=== PATIENT | male | born 1990 | race Caucasian/White ===

== ENCOUNTER → 2021-02-11 | Outpatient (CLI) | payer OTHER ==
[~2021-02-11] MED LIST: ACET325T26 PO; COLC0.6C3 PO; IBUP-1902 PO; OMNIPAQUE 350 MG/ML, 100ML BOTTLE ONE
== END | disposition home or self-care (01) ==
LOC: CFH 13:17
PROVIDERS: ATTEND Family Medicine
DX: R06.02 Shortness of breath (principal)
CPT/HCPCS: 71275; Q9967

== ENCOUNTER → 2021-02-12 | Outpatient (CLI) | payer OTHER ==
[~2021-02-12] MED LIST changes: -OMNIPAQUE 350 MG/ML, 100ML BOTTLE ONE
== END | disposition home or self-care (01) ==
LOC: CVU 09:54
PROVIDERS: ATTEND Internal Medicine Clinical Cardiac Electrophysiology
DX: I37.1 Nonrheumatic pulmonary valve insufficiency (principal); I40.0 Infective myocarditis
CPT/HCPCS: 93308; 93321; 93325

== ENCOUNTER → 2021-03-18 | Outpatient (CLI) | payer OTHER | END | disposition home or self-care (01) | LOC: CFH 13:51 | PROVIDERS: ATTEND Internal Medicine Clinical Cardiac Electrophysiology | DX: I51.7 Cardiomegaly (principal); I40.0 Infective myocarditis; Z86.16 Personal history of COVID-19 | CPT/HCPCS: 93306; 93356 ==

== ENCOUNTER 2021-03-28 22:42 | Emergency (ER) | payer OTHER ==
[~2021-03-28] VITALS: Ht 182.9 cm; Wt 101.0 kg
[2021-03-28 23:12] LABS: BASOPHILS % (AUTO) 1 % (0-1); EOSINOPHILS % (AUTO) 2 % (1-7); LYMPHOCYTES % (AUTO) 46 % (22-44); MEAN CORPUSCULAR HEMOGLOBIN 30.9 pg (27.5-34.5); MEAN CORPUSCULAR HGB CONC 35.1 g/dL (33.2-36.2); MONOCYTES % (AUTO) 8 % (2-9); NEUTROPHILS % (AUTO) 43 % (42-75); PLATELET COUNT 251 x10^3/uL (130-400); RED BLOOD COUNT 5.38 x10^6/uL (4.38-5.82); RED CELL DISTRIBUTION WIDTH 12.3 % (9.4-14.8)
--- NOTE | 2021-03-28 23:12 | NUR ---
PT CAME INTO ED THIS EVENING AFTER HAVING ISSUES WITH HEART PALPITATIONS. PT HAD COVID AWHILE BACK AND SINCE THAT POINT FEELS THOUGH OCCASSIONALLY HE WILL GET A FAST HEART RATE THAT WILL FEEL LIKE ITS FLUTTERING IN HIS CHEST AND LIKE HE IS HAVING SOME SOB. PT REPORTS HE JUST FEELS "OFF DURING THIS EPISODES." Patient is resting comfortably in bed. Bed in lowest, rails engaged, call light on lap. Vital Signs within normal limits. SO AT BS. WCTM.
[2021-03-28 23:16] LABS: MD NO
[2021-03-28 23:25] LABS: ALBUMIN 4.2 g/dL (3.4-5.0); ANION GAP 9 mmol/L (5-15); CALCIUM 8.7 mg/dL (8.5-10.1); CHLORIDE 103 mmol/L (98-107)
[2021-03-28] MEDS ORDERED: LORazepam 1MG TABLET PO ONE (23:30)
[2021-03-28] MEDS ORDERED: LORazepam 1MG TABLET ONE (23:36)
[2021-03-28 23:37] LABS: ALANINE AMINOTRANSFERASE 48 U/L (12-78); ALKALINE PHOSPHATASE 52 U/L (45-117); BILIRUBIN,TOTAL 0.6 mg/dL (0.2-1.0); CREATININE 1.25 mg/dL (0.7-1.3); TOTAL PROTEIN 7.5 g/dL (6.4-8.2)
[2021-03-29 00:10] VITALS: BP 134/89
--- NOTE | 2021-03-29 00:26 | NUR ---
Patient verbally given discharge instructions and they have confirmed that they understand the instructions. Patient ambulatory with steady gait. NAD, all questions answered appropriately, denies additional needs at this time. No personal belongings left in room after discharge. pt left dc paperwork behind in room.
== END 2021-03-29 00:29 | disposition home or self-care (01) ==
LOC: ED 23:00
DX: R00.2 Palpitations (principal); R07.9 Chest pain, unspecified
CPT/HCPCS: 36415; 71045; 80053; 84443; 84484; 85025; 93005; 99285

== ENCOUNTER → 2021-05-27 | Outpatient (CLI) | payer OTHER | END | disposition home or self-care (01) | LOC: CFH 13:27 | PROVIDERS: ATTEND Internal Medicine Clinical Cardiac Electrophysiology | DX: I37.1 Nonrheumatic pulmonary valve insufficiency (principal); I32 Pericarditis in diseases classified elsewhere | CPT/HCPCS: 93306; 93356 ==

== ENCOUNTER 2021-06-13 09:07 | Day surgery (SDC) | payer OTHER ==
[~2021-06-13] VITALS: Ht 185.4 cm; Wt 95.5 kg
[2021-06-13] MEDS ORDERED: SERT25TA PO (10:07)
[2021-06-13 10:13] VITALS: BP 139/85
[2021-06-13 11:23] LABS: BASOPHILS % (AUTO) 1 % (0-1); EOSINOPHILS % (AUTO) 1 % (1-7); LYMPHOCYTES % (AUTO) 36 % (22-44); MEAN CORPUSCULAR HEMOGLOBIN 31.2 pg (27.5-34.5); MEAN CORPUSCULAR HGB CONC 34.7 g/dL (33.2-36.2); MEAN PLATELET VOLUME 8.6 fL (7.4-10.4); MONOCYTES % (AUTO) 7 % (2-9); NEUTROPHILS % (AUTO) 56 % (42-75); PLATELET COUNT 242 x10^3/uL (130-400); RED BLOOD COUNT 5.24 x10^6/uL (4.38-5.82)
[2021-06-13 11:27] LABS: ANION GAP 7 mmol/L (5-15); CALCIUM 8.9 mg/dL (8.5-10.1); CHLORIDE 106 mmol/L (98-107)
[2021-06-13] MEDS ORDERED: VERAPAMIL 2.5 MG/ML, 2ML ONE (13:05)
[2021-06-13] MEDS ORDERED: TICAGRELOR 90 MG TABLET ONE (13:05)
[2021-06-13] MEDS ORDERED: MIDAZOLAM 1 MG/ML, 5ML ONE (13:05)
[2021-06-13] MEDS ORDERED: BIVALIRUDIN 250 MG ONE (13:05)
[2021-06-13] MEDS ORDERED: FENTANYL PF 100 MCG/2ML ONE (13:05)
[2021-06-13] MEDS ORDERED: LIDOCAINE-MPF 1%, 5ML ONE (13:06)
[2021-06-13] MEDS ORDERED: HEPARIN 1,000 UNITS/ML, 10ML ONE (13:06)
[2021-06-13] MEDS ORDERED: SODIUM CHLORIDE 0.9% 1,000 ML IV SCH (14:00)
== END 2021-06-13 15:23 | disposition home or self-care (01) ==
LOC: CACL 09:07
PROVIDERS: ATTEND Internal Medicine Cardiovascular Disease
DX: R74.8 Abnormal levels of other serum enzymes (principal); I40.0 Infective myocarditis
CPT/HCPCS: 36415; 80048; 85025; 93458; 99156; C1769; C1894; J1644; J2250; J3010; Q9967; J0583